=== PATIENT | male | born 1980 | race Caucasian/White ===

== ENCOUNTER 2021-06-05 23:42 | Emergency (ER) | payer BC ==
[~2021-06-05] VITALS: Ht 180.3 cm; Wt 77.1 kg
--- NOTE | 2021-06-06 00:10 | NUR ---
pt came in c/o upper abd pain, stating he feels much better now. pt placed on monitor vss.
[2021-06-06 00:38] LABS: BASOPHILS % (AUTO) 0.2 % (0.0-2.0); EOSINOPHILS % (AUTO) 0.5 % (0.0-6.0); HEMATOCRIT 40 % (39-51); HEMOGLOBIN 13.6 g/dL (13.5-17.5); LYMPHOCYTES # (AUTO) 0.7 K/uL (0.8-4.8); LYMPHOCYTES % (AUTO) 7.1 % (20.0-44.0); MEAN CORPUSCULAR HGB CONC 34 g/dl (31.0-36.0); MEAN CORPUSCULAR VOLUME 91 fL (80-96); MONOCYTES # (AUTO) 0.7 K/uL (0.1-1.30); MONOCYTES % (AUTO) 7.1 % (2.0-12.0); NEUTROPHILS # (AUTO) 8.2 K/uL (1.8-8.9); NEUTROPHILS % (AUTO) 85.1 % (43.0-81.0); PLATELET COUNT (AUTO) 164 K/uL (150-450); RED BLOOD CELL COUNT(AUTO) 4.46 MIL/uL (4.5-6.0); WHITE BLOOD COUNT (AUTO) 9.6 K/uL (4.3-11.0)
[2021-06-06] MEDS ORDERED: ONDANSETRON HCL/PF 4 MG/2 ML VIAL IVP ONE (01:00)
[2021-06-06] MEDS ORDERED: IV NS 0.9% 1,000 ML BAG IV ONE (01:00)
[2021-06-06] MEDS ORDERED: PANTOPRAZOLE 40 MG VIAL IV ONE (01:00)
[2021-06-06] MEDS ORDERED: KETOROLAC TROMETHAMINE INJ 30 MG/ML VIAL IV ONE (01:00)
[2021-06-06 01:09] LABS: CALCIUM, SERUM 8.6 mg/dL (8.5-10.1); CREATININE 1.2 mg/dL (0.6-1.3); POTASSIUM 3.9 mmol/L (3.5-5.1)
[2021-06-06 01:24] LABS: ALBUMIN 3.5 g/dL (3.4-5.0); BILIRUBIN,DIRECT 0.1 mg/dL (0.0-0.2); BILIRUBIN,TOTAL 0.3 mg/dL (0.2-1.0); TOTAL PROTEIN, SERUM 6.8 g/dL (6.4-8.2)
[2021-06-06] MEDS ORDERED: PANT40TA2 PO (02:09)
[2021-06-06 02:20] VITALS: BP 116/68
--- NOTE | 2021-06-06 02:23 | NUR ---
Patient discharged to home in stable condition.Rx, Written and verbal after care instructions given. Patient verbalizes understanding of instruction.
== END 2021-06-06 02:30 | disposition home or self-care (01) ==
LOC: ER 23:50
DX: R10.13 Epigastric pain (principal); R10.10 Upper abdominal pain, unspecified; Z60.2 Problems related to living alone
CPT/HCPCS: 36415; 76705-TC; 80048-TC; 80076-TC; 83690-TC; 85025-TC